=== PATIENT | male | born 2000 | race African-American/Black ===

== ENCOUNTER 2023-09-16 22:05 | Emergency (ER) | payer OTHER ==
[2023-09-16 22:12] VITALS: BP 123/74; PULSE 71; RESP 16; TEMP 98.7; BMI 33.1
[2023-09-17] MEDS ORDERED: KETOROLAC TROMETHAMINE 60 MG/2 ML VIAL IM ONE (00:40)
[2023-09-17] MEDS ORDERED: KETOROLAC TROMETHAMINE 60 MG/2 ML VIAL ONE (00:43)
== END 2023-09-17 00:44 | disposition home or self-care (01) ==
LOC: FER 22:05
PROC: 3E0233Z Introduction of Anti-inflammatory into Muscle, Percutaneous Approach (ICD-10-PCS; principal; 2023-09-17)
DX: R51.9 Headache, unspecified (principal); M54.6 Pain in thoracic spine; H92.09 Otalgia, unspecified ear
CPT/HCPCS: 70450-TC; 99284-25

== ENCOUNTER 2024-10-03 13:04 | Emergency (ER) | payer OTHER ==
[2024-10-03] MEDS ORDERED: ACETAMINOPHEN 325 MG TABLET (FP) ONE (13:35)
[2024-10-03] MEDS: ACETAMINOPHEN 325 MG TABLET (FP) PO ONE (13:37)
[2024-10-03 13:39] VITALS: BP 121/82; PULSE 88; RESP 16; TEMP 98.4; BMI 34.0
[2024-10-03] MEDS ORDERED: KETOROLAC TROMETHAMINE 30 MG/1 ML VIAL ONE (14:49)
[2024-10-03] MEDS: KETOROLAC TROMETHAMINE 30 MG/1 ML VIAL IM ONE (14:55)
[2024-10-03 16:03] LABS: HIV INTERPRETATION NEGATIVE (NEGATIVE)
== END 2024-10-03 15:05 | disposition home or self-care (01) ==
LOC: FER 13:04
PROC: 3E0233Z Introduction of Anti-inflammatory into Muscle, Percutaneous Approach (ICD-10-PCS; principal; 2024-10-03)
DX: S09.8XXA Other specified injuries of head, initial encounter (principal); R51.9 Headache, unspecified; H53.149 Visual discomfort, unspecified; R11.0 Nausea; R42 Dizziness and giddiness; X50.9XXA Other and unspecified overexertion or strenuous movements or postures, initial encounter
CPT/HCPCS: 36415; 70450-TC; 86803; 87389; 99284-25